=== PATIENT | male | born 1970 | race Caucasian/White ===

== ENCOUNTER 2017-09-16 08:25 | Outpatient (CLI) | payer OTHER ==
--- NOTE | 2017-09-16 10:35 | RAD ---
PA AND LATERAL VIEWS CHEST: Date: 09/16/17 HISTORY: Hypertension. FINDINGS/IMPRESSION: The heart size is normal. No focal areas of consolidation, pneumothoraces, or pleural effusions are s een. No acute osseous abnormality is identified. IMPRESSION: No radiographic evidence of acute cardiopulmonary process. POS: [facility]
== END 2017-09-16 08:26 | disposition home or self-care (01) ==
LOC: RAD-FRANK 08:25
PROVIDERS: ATTEND Nurse Practitioner Family
DX: I10 Essential (primary) hypertension (principal)
CPT/HCPCS: 71046

== ENCOUNTER 2018-10-23 08:41 | Outpatient (CLI) | payer OTHER ==
--- NOTE | 2018-10-23 08:52 | RAD ---
CHEST TWO VIEWS: HISTORY: Bronchitis. COMPARISON: 09/16/2017 FINDINGS: Heart size is within normal limits. Lungs are clear. Minimal focal right-sided pleural thickening, stable. IMPRESSION: 1. Minimal stable right-sided focal pleural thickening, stable. 2. No acute intrathoracic disease. POS: [facility]
== END 2018-10-23 08:42 | disposition home or self-care (01) ==
LOC: RAD-FRANK 08:41
PROVIDERS: ATTEND Nurse Practitioner Family
DX: J20.8 Acute bronchitis due to other specified organisms (principal); R91.8 Other nonspecific abnormal finding of lung field
CPT/HCPCS: 71046